=== PATIENT | male | born 1965 | race Caucasian/White ===

== ENCOUNTER 2017-04-19 19:20 | Emergency (ER) | payer OTHER ==
[~2017-04-19 19:20] MED LIST: HYDR-3129 PO; METH10TA PO
[2017-04-19 19:21] VITALS: BP 142/88; PULSE 79; RESP 17; TEMP 98.7; O2SAT 97
[2017-04-19] MEDS ORDERED: IOHEXOL 350 MG/ML 10 ML VIAL (for RAD DIAG) IVCONTRAST ONE (19:21)
--- NOTE | 2017-04-19 19:42 | PD ---
Physical Exam Date Seen by Provider: Apr 19, 2017 Time Seen by Provider: 19:38 Narrative 51-year-old white male presents to emergency department with complaint of complaints of ventral hernia, nausea, vomiting and abdominal pain. This is been present now for 2 days. Patient is on [id number]. Patient has noted his urine be very dark and samy color. Patient has noted a decrease in stool evacuation. Patient rates his pain as 6/10. Vital signs reviewed. Awaiting bed placement. Data Data Last Documented VS Vital Signs Date Time Temp Pulse Resp B/P (MAP) Pulse Ox O2 Delivery O2 Flow Rate FiO2 04/19/17 19:21 98.7 79 17 142/88 (106) 97 Room Air [facility] Medical Record Reviewed: No Supervised Visit with ELIN: Guido Nam Apr 19, 2017 19:42
[2017-04-19 19:52] VITALS: BP 158/91; PULSE 78; RESP 18; O2SAT 99
[2017-04-19] MEDS ORDERED: METH40TA PO (19:52)
[2017-04-19] MEDS ORDERED: SODIUM CHLOR 0.9% 1000 ML INJ 1,000 ML IV SCH (19:57)
[2017-04-19] MEDS ORDERED: SODIUM CHLORIDE 0.9% FLUSH 10 ML FLUSH IV FLUSH PRN (20:00)
[2017-04-19 20:33] LABS: APTT (PATIENT) 30.1 SEC (24.3-30.1); AUTOMATED NEUTROPHIL # 4.1 TH/MM3 (1.8-7.7); BASOPHIL % 0.4 % (0.0-2.0); EOSINOPHIL # 0.2 TH/MM3 (0-0.4); HEMATOCRIT 41.3 % (39.0-51.0); INTERNATIONAL NORMALIZED RATIO 1.4 RATIO; LYMPH % 22.2 % (9.0-44.0); LYMPHOCYTE # 1.4 TH/MM3 (1.0-4.8); MEAN CELL VOLUME 102.9 FL (80.0-100.0); MEAN CORPUSCULAR HEMOGLOBIN 34.6 PG (27.0-34.0); MEAN CORPUSCULAR HGB CONC 33.6 % (32.0-36.0); MONO % 8.9 % (0.0-8.0); NEUT % 65.5 % (16.0-70.0); PLATELET COUNT 82 TH/MM3 (150-450); PROTHROMBIN TIME - PATIENT 15.2 SEC (9.8-11.6); RED BLOOD COUNT 4.01 MIL/MM3 (4.50-5.90); WHITE BLOOD COUNT 6.3 TH/MM3 (4.0-11.0)
[2017-04-19 20:36] LABS: HEMO FLAGS AUTO DIFF
[2017-04-19 20:44] LABS: ALT (GPT) 50 U/L (12-78)
--- NOTE | 2017-04-19 20:44 | PD ---
HPI Chief Complaint: GI Complaint Time Seen by Provider: 19:52 Travel History International Travel<30 days: No Contact w/Intl Traveler<30days: No Traveled to known affect area: No History of Present Illness HPI Patient is a 51-year-old male who presents to emergency room with complaints of abdominal pain. Patient reports that he was seen at urgent care center today, reports that he was sent to the emergency room for workup of a strangulated ventral hernia. Patient reports that he developed a ventral hernia while ago, reports that for the past 2 days, he has had abdominal pain with nausea and vomiting. Denies any diarrhea, reports that he has not had a bowel movement in the past 2 days. Patient reports that he is also noted that his urine has been very dark. Reports that he is here to be evaluated for a strangulated ventral hernia. Patient reports that the only surgery he has had in the past was a right-sided inguinal hernia surgical repair. PFSH Past Medical History Blood Disorders: No Cancer: No Cardiovascular Problems: No Diminished Hearing: No Endocrine: No Genitourinary: Yes (RIGHT INGUINAL HERNIA REPAIR) Hepatitis: Yes (C) Immune Disorder: No Musculoskeletal: No Neurologic: No Psychiatric: No Reproductive: No Respiratory: No Immunizations Current: Yes Tetanus Vaccination: < 5 Years Influenza Vaccination: No Past Surgical History Other Surgery: Yes (R INGUINAL HERNIA) Social History Alcohol Use: Yes (OCCASSIONALLY) Tobacco Use: Yes (<1PPD) Substance Use: No Allergies-Medications (Allergen,Severity, Reaction): Coded Allergies: No Known Allergies (Verified , 04/19/17) Reported Meds & Prescriptions Reported Meds & Active Scripts Active Zofran Odt (Ondansetron Odt) 4 Mg Tab 4 Mg SL Q6HR PRN Reported Methadone (Methadone HCl) 40 Mg Tab 45 Mg PO DAILY Review of Systems General / Constitutional: No: Fever Eyes: No: Visual changes HENT: No: Headaches Cardiovascular: No: Chest Pain or Discomfort Respiratory: No: Shortness of Breath Gastrointestinal: Positive: Nausea, Vomiting, Abdominal Pain, Constipation Genitourinary: No: Dysuria Musculoskeletal: No: Pain Skin: No Rash Neurologic: No: Weakness Psychiatric: No: Depression Endocrine: No: Polydipsia Hematologic/Lymphatic: No: Easy Bruising Physical Exam Narrative GENERAL: mild distress SKIN: Focused skin assessment warm/dry. HEAD: Atraumatic. Normocephalic. EYES: Pupils equal and round. No scleral icterus. No injection or drainage. ENT: No nasal bleeding or discharge. Mucous membranes pink and moist. NECK: Trachea midline. No JVD. CARDIOVASCULAR: Regular rate and rhythm. No murmur appreciated. RESPIRATORY: No accessory muscle use. Clear to auscultation. Breath sounds equal bilaterally. GASTROINTESTINAL: Abdomen soft, non-tender, nondistended. Patient with nonreducible ventral hernia. Hepatic and splenic margins not palpable. MUSCULOSKELETAL: No obvious deformities. No clubbing. No cyanosis. No edema. NEUROLOGICAL: Awake and alert. No obvious cranial nerve deficits. Motor grossly within normal limits. Normal speech. PSYCHIATRIC: Appropriate mood and affect; insight and judgment normal. Data Data Last Documented VS Vital Signs Date Time Temp Pulse Resp B/P (MAP) Pulse Ox O2 Delivery O2 Flow Rate FiO2 04/19/17 19:52 78 18 158/91 (113) 99 Room Air 04/19/17 19:21 98.7 Orders Orders Complete Blood Count With Diff (04/19/17 19:57) Comprehensive Metabolic Panel (04/19/17 19:57) Lipase (04/19/17 19:57) Prothrombin Time / Inr (Pt) (04/19/17 19:57) Act Partial Throm Time (Ptt) (04/19/17 19:57) Urinalysis - C+S If Indicated (04/19/17 19:57) Iv Access Insert/Monitor (04/19/17 19:57) Ecg Monitoring (04/19/17 19:57) Sodium Chlor 0.9% 1000 Ml Inj (Ns 1000 M (04/19/17 19:57) Sodium Chloride 0.9% Flush (Ns Flush) (04/19/17 20:00) Ct Abd/Pel W Iv Contrast(Rout) (04/19/17 20:12) Electrocardiogram (04/19/17 20:03) Oral Contrast - Adult (04/19/17 21:11) Diatrizoate Liq ( Gastroantoni Liq) (04/19/17 21:27) Iohexol 350 Inj (Omnipaque 350 Inj) (04/19/17 19:21) Labs Laboratory Tests Test 04/19/17 20:02 04/19/17 23:19 White Blood Count 6.3 TH/MM3 Red Blood Count 4.01 MIL/MM3 Hemoglobin 13.9 GM/DL Hematocrit 41.3 % Mean Corpuscular Volume 102.9 FL Mean Corpuscular Hemoglobin 34.6 PG Mean Corpuscular Hemoglobin Concent 33.6 % Red Cell Distribution Width 14.0 % Platelet Count 82 TH/MM3 Mean Platelet Volume 9.0 FL Neutrophils (%) (Auto) 65.5 % Lymphocytes (%) (Auto) 22.2 % Monocytes (%) (Auto) 8.9 % Eosinophils (%) (Auto) 3.0 % Basophils (%) (Auto) 0.4 % Neutrophils # (Auto) 4.1 TH/MM3 Lymphocytes # (Auto) 1.4 TH/MM3 Monocytes # (Auto) 0.6 TH/MM3 Eosinophils # (Auto) 0.2 TH/MM3 Basophils # (Auto) 0.0 TH/MM3 CBC Comment AUTO DIFF Differential Comment AUTO DIFF CONFIRMED Platelet Estimate LOW Platelet Morphology Comment NORMAL Ovalocytes 1+ Prothrombin Time 15.2 SEC Prothromb Time International Ratio 1.4 RATIO Activated Partial Thromboplast Time 30.1 SEC Blood Urea Nitrogen 8 MG/DL Creatinine 0.56 MG/DL Random Glucose 77 MG/DL Total Protein 8.5 GM/DL Albumin 3.3 GM/DL Calcium Level 8.9 MG/DL Alkaline Phosphatase 144 U/L Aspartate Amino Transf (AST/SGOT) 164 U/L Alanine Aminotransferase (ALT/SGPT) 50 U/L Total Bilirubin 2.5 MG/DL Sodium Level 138 MEQ/L Potassium Level 3.9 MEQ/L Chloride Level 104 MEQ/L Carbon Dioxide Level 26.3 MEQ/L Anion Gap 8 MEQ/L Estimat Glomerular Filtration Rate 155 ML/MIN Lipase 97 U/L Urine Color LIGHT-BROWN Urine Turbidity CLEAR Urine pH 7.0 Urine Specific [place] GREATER THAN 1.050 Urine Protein 100 mg/dL Urine Glucose (UA) NEG mg/dL Urine Ketones 40 mg/dL Urine Occult Blood NEG Urine Nitrite NEG Urine Bilirubin NEG Urine Urobilinogen GREATER THAN 12.0 MG/DL Urine Leukocyte Esterase NEG Urine RBC 1 /hpf Urine WBC 1 /hpf Urine Mucus FEW /lpf Microscopic Urinalysis Comment CULT NOT INDICATED MDM Medical Decision Making Medical Screen Exam Complete: Yes Emergency Medical Condition: Yes Interpretation(s) Vital Signs Date Time Temp Pulse Resp B/P (MAP) Pulse Ox O2 Delivery O2 Flow Rate FiO2 04/19/17 19:52 78 18 158/91 (113) 99 Room Air 04/19/17 19:21 98.7 79 17 142/88 (106) 97 Room Air Differential Diagnosis Differential includes ventral hernia incarceration, electrolyte abnormality, gastroenteritis, gastritis, UTI, dehydration Narrative Course Patient is a 51-year-old male who presents to emergency room with complaints of abdominal pain with nausea and vomiting and constipation for the past 2 days. He was sent over to the emergency room by urgent care center for evaluation of possible strangulated hernia versus small bowel obstruction. Patient is comfortable at this time. CT the abdomen and pelvis with IV contrast ordered. Lab work including LFTs ordered. Will administer IV fluids and monitor patient.. Vital Signs Date Time Temp Pulse Resp B/P (MAP) Pulse Ox O2 Delivery O2 Flow Rate FiO2 04/19/17 19:52 78 18 158/91 (113) 99 Room Air 04/19/17 19:21 98.7 79 17 142/88 (106) 97 Room Air Laboratory Tests Test 04/19/17 20:02 04/19/17 23:19 White Blood Count 6.3 TH/MM3 (4.0-11.0) Red Blood Count 4.01 MIL/MM3 (4.50-5.90) Hemoglobin 13.9 GM/DL (13.0-17.0) Hematocrit 41.3 % (39.0-51.0) Mean Corpuscular Volume 102.9 FL (80.0-100.0) Mean Corpuscular Hemoglobin 34.6 PG (27.0-34.0) Mean Corpuscular Hemoglobin Concent 33.6 % (32.0-36.0) Red Cell Distribution Width 14.0 % (11.6-17.2) Platelet Count 82 TH/MM3 (150-450) Mean Platelet Volume 9.0 FL (7.0-11.0) Neutrophils (%) (Auto) 65.5 % (16.0-70.0) Lymphocytes (%) (Auto) 22.2 % (9.0-44.0) Monocytes (%) (Auto) 8.9 % (0.0-8.0) Eosinophils (%) (Auto) 3.0 % (0.0-4.0) Basophils (%) (Auto) 0.4 % (0.0-2.0) Neutrophils # (Auto) 4.1 TH/MM3 (1.8-7.7) Lymphocytes # (Auto) 1.4 TH/MM3 (1.0-4.8) Monocytes # (Auto) 0.6 TH/MM3 (0-0.9) Eosinophils # (Auto) 0.2 TH/MM3 (0-0.4) Basophils # (Auto) 0.0 TH/MM3 (0-0.2) CBC Comment AUTO DIFF Differential Comment AUTO DIFF CONFIRMED Platelet Estimate LOW (NORMAL) Platelet Morphology Comment NORMAL (NORMAL) Ovalocytes 1+ (NORMAL) Prothrombin Time 15.2 SEC (9.8-11.6) Prothromb Time International Ratio 1.4 RATIO Activated Partial Thromboplast Time 30.1 SEC (24.3-30.1) Blood Urea Nitrogen 8 MG/DL (7-18) Creatinine 0.56 MG/DL (0.60-1.30) Random Glucose 77 MG/DL (74-106) Total Protein 8.5 GM/DL (6.4-8.2) Albumin 3.3 GM/DL (3.4-5.0) Calcium Level 8.9 MG/DL (8.5-10.1) Alkaline Phosphatase 144 U/L (45-117) Aspartate Amino Transf (AST/SGOT) 164 U/L (15-37) Alanine Aminotransferase (ALT/SGPT) 50 U/L (12-78) Total Bilirubin 2.5 MG/DL (0.2-1.0) Sodium Level 138 MEQ/L (136-145) Potassium Level 3.9 MEQ/L (3.5-5.1) Chloride Level 104 MEQ/L (98-107) Carbon Dioxide Level 26.3 MEQ/L (21.0-32.0) Anion Gap 8 MEQ/L (5-15) Estimat Glomerular Filtration Rate 155 ML/MIN (>89) Lipase 97 U/L (73-393) Urine Color LIGHT-BROWN (YELLW/STRAW) Urine Turbidity CLEAR (CLEAR) Urine pH 7.0 (5.0-8.5) Urine Specific [place] GREATER THAN 1.050 Urine Protein 100 mg/dL (NEG-TRACE) Urine Glucose (UA) NEG mg/dL (NEG) Urine Ketones 40 mg/dL (NEG) Urine Occult Blood NEG (NEG) Urine Nitrite NEG (NEG) Urine Bilirubin NEG (NEG) Urine Urobilinogen GREATER THAN 12.0 MG/DL Urine Leukocyte Esterase NEG (NEG) Urine RBC 1 /hpf (0-3) Urine WBC 1 /hpf (0-5) Urine Mucus FEW /lpf (OCC) Microscopic Urinalysis Comment CULT NOT INDICATED Last Impressions Abdomen/Pelvis CT 04/19/172011 Signed Impressions: Service Date/Time: Wednesday, April 19, 2017 23:04 - CONCLUSION: 1. No acute abnormality to explain the patient's pain. 2. Portal hypertension with GE junction varicosities and mild splenomegaly. 3. Small right hepatic cyst is stable. 4. Colonic diverticulosis. 5. Left renal hernia containing fat. Ramon White Jr., MD I reviewed all labs and all studies with patient in detail. All incidental findings were reviewed with him. A copy of patient's studies were given to him at discharge. Patient is feeling much better at this time. Patient will follow up with his primary care doctor and will return to emergency room as needed. I advised patient to stop drinking alcohol as this could be the reason for his transaminitis and thrombocytopenia. Signs and symptoms of when to return to the ER was reviewed with patient in detail Diagnosis Primary Impression: Abdominal pain Additional Impressions: Thrombocytopenia Nausea & vomiting Transaminitis Patient Instructions: General Instructions, Narcotic given in the ED Additional Instructions: Please follow up with your primary care doctor Return to ER if symptoms worsen or persist Please have your doctor repeat your lab work from today, bring your labs and studies to your doctor's office for follow up on all findings from today Return to ER as needed Med/Other Pt SpecificInfo: Prescription(s) given Scripts Ondansetron Odt (Zofran Odt) 4 Mg Tab 4 MG SL Q6HR Y for Nausea/Vomiting, #20 TAB 0 Refills Prov: Desire Penn DO 04/20/17 Disposition: 01 DISCHARGE HOME Condition: Stable Desire Penn DO Apr 19, 2017 20:44
[2017-04-19 20:46] LABS: ALKALINE PHOSPHATASE 144 U/L (45-117); TOTAL BILIRUBIN ADULT 2.5 MG/DL (0.2-1.0)
[2017-04-19 21:05] LABS: ANION GAP 8 MEQ/L (5-15); AST (GOT) 164 U/L (15-37); BICARBONATE 26.3 MEQ/L (21.0-32.0); BLOOD UREA NITROGEN 8 MG/DL (7-18); CHLORIDE 104 MEQ/L (98-107); GLOMERULAR FILTRATION RATE 155 ML/MIN (>89); POTASSIUM 3.9 MEQ/L (3.5-5.1); SODIUM (NA) 138 MEQ/L (136-145)
[2017-04-19] MEDS ORDERED: DIATRIZOATE MEGLUM/DIATRIZOATE SOD 9 ML CUP ONE (21:27)
[2017-04-19 21:35] LABS: PLATELET ESTIMATE SMEAR LOW (NORMAL); PLATELET MORPHOLOGY NORMAL (NORMAL); SCAN/DIFF AUTO DIFF CONFIRMED
[2017-04-19 21:36] LABS: OVALOCYTES 1+ (NORMAL)
[2017-04-19 23:00] VITALS: BP 147/71; PULSE 81; RESP 18; O2SAT 98
--- NOTE | 2017-04-19 23:26 | EKG ---
Date Performed: 04/19/2017 Time Performed: 20:03:00 PTAGE: 51 years EKG: Sinus rhythm NORMAL ECG PREVIOUS TRACING : 03/29/2016 19.55 Compared to the previous tracing, now in sinus rhythm DOCTOR: Cb Aguirre Interpretating Date/Time 04/19/2017 23:25:24
--- NOTE | 2017-04-19 23:26 | RADRPT ---
EXAM DATE/TIME: 04/19/2017 23:04 [facility] COMPARISON: CT ABDOMEN & PELVIS W CONTRAST, March 29, 2016, 21:38. INDICATIONS : Abdomen pain with nausea and vomiting past 2 days. IV CONTRAST: 95 cc Omnipaque 350 (iohexol) IV ORAL CONTRAST: Partial prescribed oral contrast ingested. RADIATION DOSE: 12.87 CTDIvol (mGy) MEDICAL HISTORY : Hepatitis C. SURGICAL HISTORY : Inguinal hernia repair. ENCOUNTER: Initial ACUITY: 2 days PAIN SCALE: 6/10 LOCATION: Bilateral abdomen TECHNIQUE: Volumetric scanning of the abdomen and pelvis was performed. Using automated exposure control and ad justment of the mA and/or kV according to patient size, radiation dose was kept as low as reasonably achievable to obtain optimal diagnostic quality images. DICOM format image data is available electro nically for review and comparison. FINDINGS: LOWER LUNGS: The visualized lower lungs are clear. LIVER: The liver has a diffuse heterogeneity background. There is a cyst involving segment 8 which is stable . No solid lesions appreciated. A recannulated periumbilical vein noted. Gallbladder is unremarkable. SPLEEN: The spleen is enlarged measuring 14 cm. No splenic lesion. The splenic vein is patent. PANCREAS: Within normal limits. KIDNEYS: Normal in size and shape. There is no mass, stone or hydronephrosis. ADRENAL GLANDS: Within normal limits. VASCULAR: There is no aortic aneurysm. BOWEL/MESENTERY: Varicosities are seen at the GE junction. The stomach, small bowel, and colon demonstrate no acute ab normality. Diffuse colonic diverticulosis without acute inflammation. There is no free intraperitonea l air or fluid. ABDOMINAL WALL: Within normal limits. RETROPERITONEUM: There is no lymphadenopathy. BLADDER: No wall thickening or mass. REPRODUCTIVE: Within normal limits. INGUINAL: Left renal hernia containing fat. No adenopathy. MUSCULOSKELETAL: Old left L2 and L3 transverse process fractures. 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 CONCLUSION: 1. No acute abnormality to explain the patient's pain. 2. Portal hypertension with GE junction varicosities and mild splenomegaly. 3. Small right hepatic cyst is stable. 4. Colonic diverticulosis. 5. Left renal hernia containing fat. Ramon White Jr., MD on April 19, 2017 at 23:20 Board Certified Radiologist. This report was verified electronically.
[2017-04-19 23:33] LABS: BLOOD, URINE NEG (NEG); COMMENT (UR) CULT NOT INDICATED; CULTURE IF INDICATED CULT NOT INDICATED; GLUCOSE,URINE NEG (NEG); KETONE, URINE 40 mg/dL (NEG); MUCUS URINE FEW /lpf (OCC); NITRITE,URINE NEG (NEG)
[2017-04-19 23:34] LABS: URINE COLOR LIGHT-BROWN (YELLW/STRAW)
[2017-04-20] MEDS ORDERED: ZOFR4TAB3 SL (00:39)
[2017-04-20] MEDS ORDERED: ONDANSETRON ODT 4 MG TAB PO ONE (01:00)
== END 2017-04-20 01:00 | disposition home or self-care (01) ==
LOC: NEPE 19:20
DX: R10.9 Unspecified abdominal pain (principal); D69.6 Thrombocytopenia, unspecified; R74.0 Nonspecific elevation of levels of transaminase and lactic acid dehydrogenase [LDH]; K43.9 Ventral hernia without obstruction or gangrene; R11.2 Nausea with vomiting, unspecified; F17.210 Nicotine dependence, cigarettes, uncomplicated; K59.00 Constipation, unspecified
CPT/HCPCS: 74177; 80053; 81001; 83690; 85025; 85610; 85730; 93005; 96360; 99285; J7030; Q9963; Q9967